=== PATIENT | female | born 1960 | race Hispanic/Latino ===

== ENCOUNTER 2018-03-23 20:35 | Emergency (ER) | payer OTHER ==
[2018-03-23 20:56] VITALS: BMI 33.2
[2018-03-23 21:00] VITALS: RESP 18; TEMP 98.6
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
[2018-03-23] MEDS ORDERED: Bacitracin 500 Units/gm Oint Foilpak UD ONE (22:45)
[2018-03-23 23:11] VITALS: BP 157/75; PULSE 82; O2SAT 99
--- NOTE | 2018-03-24 09:22 | RAD ---
Date of service: 03/23/2018 PROCEDURE: Left Foot Radiographs. HISTORY: foot injury COMPARISON: None. FINDINGS: BONES: Normal. No fracture. JOINTS: Normal. SOFT TISSUES: Normal. OTHER FINDINGS: None. IMPRESSION: Normal left foot radiographs.
== END 2018-03-23 23:00 | disposition home or self-care (01) ==
LOC: MERGE 20:35 → ED 20:35
DX: S90.112A Contusion of left great toe without damage to nail, initial encounter (principal); S91.102A Unspecified open wound of left great toe without damage to nail, initial encounter; Y04.0XXA Assault by unarmed brawl or fight, initial encounter; I10 Essential (primary) hypertension